=== PATIENT | female | born 1955 ===

== ENCOUNTER → 2019-07-15 | Outpatient (CLI) | payer BC | END | disposition home or self-care (01) | LOC: LAB 14:20 → LAB SHORT 14:20 → LAB FUT 07-15 16:20 | DX: M06.9 Rheumatoid arthritis, unspecified (principal) | CPT/HCPCS: 84450 ==

== ENCOUNTER → 2021-04-19 | Outpatient (CLI) | payer MEDICARE, BC ==
[2021-04-19 19:36] LABS: Hemoglobin 12.5 g/dL (11.5-16.0); Mean Corpuscular HGB 30.2 pg (26.0-34.0); Mean Corpuscular HGB Conc 33.8 g/dL (31.5-36.5); Mean Corpuscular Volume 89 fL (80-100); Mean Platelet Volume 10.3 fL (9.1-12.4); Platelet Count 144 K/mm3 (150-400); RDW Coefficient Variation 13.3 % (11.7-14.2); RDW Standard Deviation 43.8 fL (35.1-46.3); Red Blood Cell Count 4.14 M/mm3 (3.80-5.20); White Blood Cell Count 8.35 K/mm3 (4.00-11.30)
== END | disposition home or self-care (01) ==
LOC: LAB 19:04 → LAB SHORT 19:04
PROVIDERS: Internal Medicine Rheumatology
DX: M06.9 Rheumatoid arthritis, unspecified (principal)
CPT/HCPCS: 84450; 85027; 85651

== ENCOUNTER → 2022-08-29 | Outpatient (CLI) | payer MEDICARE, BC ==
[2022-08-29 15:00] LABS: Hematocrit 40.5 % (33.0-51.0); Hemoglobin 13.7 g/dL (11.5-16.0); Mean Corpuscular HGB Conc 33.8 g/dL (31.5-36.5); Mean Corpuscular Volume 89 fL (80-100); RDW Coefficient Variation 13.2 % (11.7-14.2); RDW Standard Deviation 43.5 fL (35.1-46.3); Red Blood Cell Count 4.56 M/mm3 (3.80-5.20); White Blood Cell Count 7.34 K/mm3 (4.00-11.30)
[2022-08-29 15:14] LABS: Mean Platelet Volume 11.7 fL (9.1-12.4); Platelet Count 122 K/mm3 (150-400)
[2022-08-29 19:05] LABS: Albumin, Blood 3.8 g/dL (3.4-5.0); Albumin/Globulin Ratio 1.2 (0.8-1.8); Bilirubin, Total 0.4 mg/dL (0.1-1.0); Creatinine, Blood 0.78 mg/dL (0.40-1.00); Globulin, Blood 3.1 g/dL (2.2-4.0); Potassium, Blood 4.6 mmol/L (3.5-5.5); Total Protein, Blood 6.9 g/dL (6.4-8.2)
== END | disposition home or self-care (01) ==
LOC: LAB SHORT 13:50
PROVIDERS: Internal Medicine Rheumatology
DX: M06.9 Rheumatoid arthritis, unspecified (principal)
CPT/HCPCS: 80053; 85027; 85651

== ENCOUNTER → 2024-08-18 | Outpatient (CLI) | payer BC ==
[2024-08-18 14:35] LABS: BASOPHILS ABSOLUTE AUTO 0.07 K/mm3 (0.00-0.23); BASOPHILS PERCENT AUTO 1 % (0-2); EOSINOPHILS ABSOLUTE AUTO 0.29 K/mm3 (0.00-0.68); EOSINOPHILS PERCENT AUTO 4 % (0-6); Hematocrit 37.5 % (33.0-51.0); Hemoglobin 12.7 g/dL (11.5-16.0); IMMATURE GRAN ABSOLUTE AUTO 0.08 K/mm3 (0.00-0.10); IMMATURE GRAN PERCENT AUTO 1 % (0-1); LYMPHOCYTES ABSOLUTE AUTO 1.84 K/mm3 (0.84-5.20); LYMPHOCYTES PERCENT AUTO 25 % (21-46); MONOCYTES ABSOLUTE AUTO 0.57 K/mm3 (0.16-1.47); MONOCYTES PERCENT AUTO 8 % (4-13); Mean Corpuscular HGB 30.8 pg (26.0-34.0); Mean Corpuscular HGB Conc 33.9 g/dL (31.5-36.5); Mean Corpuscular Volume 91 fL (80-100); Mean Platelet Volume 11.1 fL (9.1-12.4); NEUTROPHILS ABSOLUTE AUTO 4.41 K/mm3 (1.96-9.15); NEUTROPHILS PERCENT AUTO 61 % (41-73); Platelet Count 172 K/mm3 (150-400); RDW Standard Deviation 43.4 fL (35.1-46.3); Red Blood Cell Count 4.12 M/mm3 (3.80-5.20); White Blood Cell Count 7.26 K/mm3 (4.00-11.30)
[2024-08-18 14:50] LABS: Albumin, Blood 3.8 g/dL (3.4-5.0); Albumin/Globulin Ratio 1.5 (0.8-1.8); Bilirubin, Total 0.5 mg/dL (0.1-1.0); Bun/Creatinine Ratio 20.1 (12.0-20.0); Calcium, Blood 8.9 mg/dL (8.5-10.1); Globulin, Blood 2.6 g/dL (2.2-4.0); Potassium, Blood 4.4 mmol/L (3.5-5.5); Total Protein, Blood 6.4 g/dL (6.4-8.2)
[2024-08-19 21:11] LABS: ANTI-NUCLEAR AB ANA,IGG ELISA Detected (None Detected)
[2024-08-20 12:42] LABS: ANA PATTERN Homogeneous; ANTINUCLEAR AB (ANA),HEP-2,IGG Detected (<1:80)
[2024-08-21 03:25] LABS: SMITH/RNP (ENA) AB, IGG 2 Units (0-19)
[2024-08-21 20:01] LABS: JO-1 HISTIDYL-TRNA SYNTHET,IGG 1 AU/mL (0-40); SCLERODERMA (SCL-70) AB,IGG 0 AU/mL (0-40); SMITH (ENA) ANTIBODY, IGG 1 AU/mL (0-40); SSA-52 (RO52) (ENA) AB, IGG 2 AU/mL (0-40); SSA-60 (RO60) (ENA) AB, IGG 0 AU/mL (0-40); SSB (LA) (ENA) ANTIBODY, IGG 0 AU/mL (0-40)
[2024-08-22 01:31] LABS: DOUBLE-STRANDED DNA IGG ELISA 12 IU (0-24)
== END ==
LOC: LAB 12:54 → LAB SHORT 12:54
PROVIDERS: Internal Medicine Rheumatology
DX: M06.9 Rheumatoid arthritis, unspecified (principal)
CPT/HCPCS: 80053; 85025; 85651; 86038; 86039; 86225; 86235